=== PATIENT | female | born 1985 | race Caucasian/White ===

== ENCOUNTER 2017-07-04 00:08 | Emergency (ER) | payer OTHER, SELFPAY ==
[2017-07-04 00:08] VITALS: BP 132/77; PULSE 81; RESP 16; TEMP 36.7; BMI 23.8
--- NOTE | 2017-07-04 00:24 | ED.VISSUMM ---
- ER Visit Summary Date of Service: 07/04/17 Chief Complaint: Left wrist injury History of Present Illness: The patient is a 32 F resents to the emergency department with injury to her left wrist. Patient was playing volleyball. She states that she went to bump a ball. She had immediate pain and swelling in her left wrist just proximal to the carpal bones. She states that since then, the pain is gotten a little bit worse. It is worse when she moves the arm. She denies any prior injury. The patient is otherwise healthy. She denies any numbness or tingling in the hand. Physical Examination: Patient has 2+ radial ulnar pulses. Sensation is preserved to light touch. Anterior interosseous, posterior interosseous, and ulnar nerve are preserved. She is tender on the anterior lateral forearm over the radial deviate her musculature. There is some swelling. There is no evidence of gamekeeper's thumb. She does have pain with extension of the thumb and radial deviation of the wrist. There is no gross laxity. Test Results: [] Emergency Department Course and Treatment: Clinically, I do feel the patient likely has tendinous rupture in the forearm overlying the extensor pollicis versus the extensor carpi ligament. X-rays were obtained. These do demonstrate some soft tissue swelling, but no acute fracture. The patient will be placed in a Velcro thumb spica splint. I did debt management counselor her that she is going to need orthopedic follow-up she may need outpatient physical therapy or an MRI. She will be started on anti-inflammatories. She is comfortable with this plan of care. She will use ice and elevation. She will be discharged home. Treatment Plan: [] Disposition: Discharge Impression: 1. Left wrist sprain This note was generated with [employer] dictation software. It may contain incorrect words, spelling, and punctuation that were not noted in review of the chart prior to signing ED Disposition - Plan for ED Patient: Chief Complaint: Upper Extremity Injury Instructions: ED Sprain Wrist Prescriptions: Naproxen [Naprosyn] 500 mg PO BID #20 tab Referrals: Rob Pena MD [STAFF PHYSICIAN] -
--- NOTE | 2017-07-04 00:25 | RAD_ITS ---
STUDY: X-RAY - LEFT WRIST REASON FOR EXAM: Female, 32 years old. Volleyball injury TECHNIQUE: 3 view(s) of the wrist were obtained. COMPARISON: None. FINDINGS: Normal visualized distal radius and ulna. Normal radiocarpal articulation. Normal distal radioulnar articulation. Normal carpal bones. Normal carpal articulations. Normal carpometacarpal articulation of the thumb. Normal second through fifth carpometacarpal articulations. Normal visualized metacarpal bones. The soft tissue structures are unremarkable. RAD/Wrist min 3 Views IMPRESSION: No acute osseous injury is evident. Electronically Signed: Lucio De León MD at 1:05 EDT Tel , Service support ,
--- NOTE | 2017-07-04 00:27 | ED.DCSUM_ITS ---
- ER Visit Summary Date of Service: 07/04/17 Chief Complaint: Left wrist injury History of Present Illness: The patient is a 32 F resents to the emergency department with injury to her left wrist. Patient was playing volleyball. She states that she went to bump a ball. She had immediate pain and swelling in her left wrist just proximal to the carpal bones. She states that since then, the pain is gotten a little bit worse. It is worse when she moves the arm. She denies any prior injury. The patient is otherwise healthy. She denies any numbness or tingling in the hand. Physical Examination: Patient has 2+ radial ulnar pulses. Sensation is preserved to light touch. Anterior interosseous, posterior interosseous, and ulnar nerve are preserved. She is tender on the anterior lateral forearm over the radial deviate her musculature. There is some swelling. There is no evidence of gamekeeper's thumb. She does have pain with extension of the thumb and radial deviation of the wrist. There is no gross laxity. Test Results: [] Emergency Department Course and Treatment: Clinically, I do feel the patient likely has tendinous rupture in the forearm overlying the extensor pollicis versus the extensor carpi ligament. X-rays were obtained. These do demonstrate some soft tissue swelling, but no acute fracture. The patient will be placed in a Velcro thumb spica splint. I did substance abuse counselor her that she is going to need orthopedic follow-up she may need outpatient physical therapy or an MRI. She will be started on anti-inflammatories. She is comfortable with this plan of care. She will use ice and elevation. She will be discharged home. Treatment Plan: [] Disposition: Discharge Impression: 1. Left wrist sprain This note was generated with [employer] dictation software. It may contain incorrect words, spelling, and punctuation that were not noted in review of the chart prior to signing ED Disposition - Plan for ED Patient: Chief Complaint: Upper Extremity Injury Instructions: ED Sprain Wrist Prescriptions: Naproxen [Naprosyn] 500 mg PO BID #20 tab Referrals: Rob Pena MD [STAFF PHYSICIAN] -
== END 2017-07-04 00:53 | disposition home or self-care (01) ==
PROVIDERS: Emergency Provider Emergency Medicine; Family Provider Family Medicine; PCP Family Medicine
DX: S63.502A Unspecified sprain of left wrist, initial encounter (principal); W21.06XA Struck by volleyball, initial encounter; Y93.68 Activity, volleyball (beach) (court); Y92.9 Unspecified place or not applicable
CPT/HCPCS: 73110; 99283

== ENCOUNTER → 2017-09-17 13:54 | Outpatient (CLI) | payer OTHER, SELFPAY ==
[2017-09-22 11:47] LABS: HPV Reflexed? NOT INDICATED
== END ==
PROVIDERS: Visit Provider Obstetrics & Gynecology
DX: Z12.4 Encounter for screening for malignant neoplasm of cervix (principal)
CPT/HCPCS: 88175; G0145

== ENCOUNTER 2018-10-24 22:02 | Emergency (ER) | payer OTHER, SELFPAY ==
[2018-10-24 22:04] VITALS: BP 131/79; PULSE 101; RESP 18; TEMP 36.6; BMI 24.0
[2018-10-24 22:33] LABS: Mucous, Urine 0 SEEN /hpf (<or=2+); Red Blood Cells-Urine 0 SEEN /hpf (0-5)
--- NOTE | 2018-10-24 22:34 | ED.VIS.GEN ---
History of Present Illness Chief Complaint: Female C/O Narrative: Patient is a 33-year-old female who presents with pelvic pain. This began earlier today. She does not have pain at rest but with movement or palpation she complains of dull pain. This is now radiating to the rest of her abdomen. She denies any fevers or vomiting. No diarrhea. 1 week ago she had dysuria that lasted about 1 day. Currently she complains of urinary urgency and frequency but no dysuria. She also complains of vaginal discharge. Her last menstrual period was about 3 weeks ago. She denies any current vaginal bleeding. She is G4, P3. Past Medical History - Allergies and Home Meds Allergies/Adverse Reactions: Allergies hydrocodone bitartrate [From Vicodin] Adverse Reaction (Verified 10/27/15 00:09) Nausea/Vom/Diarrhea Primary Care Physician: Piotr Pierre MD [Primary Care Provider] - Past Medical History: None Smoking Status: Never smoker Review of Systems All systems negative except as indicated General: Denies: Fever Gastrointestinal: Reports: Abdominal pain. Denies: Vomiting, Diarrhea Genitourinary: Reports: Dysuria, - - Urinary urgency, vaginal discharge Physical Exam Vital Signs/Narrative: Vital Signs Temp Pulse Resp BP 10/24/18 22:04 97.8 F 101 H 18 131/79 H General: Well nourished, Well developed ENT: Moist mucous membranes Neck: Supple Cardiovascular: Regular rate, Regular rhythm Respiratory: No distress, CTA bilaterally Abdomen: Soft, - - Suprapubic abdominal tenderness, no guarding, no rebound, nondistended Skin: Normal color Neurological: Alert Diagnostic/Tx/Re-eval - Medical Decision Making Gonorrhea and Chlamydia negative. negative. Urinalysis shows 100 leukocyte esterase but is also contaminated. We will send culture. Given that STI and are ruled out differential would include ovarian cyst. Given that she is comfortable with no nausea or vomiting does not appear in distress I am not concerned about ovarian torsion. I do not see an indication for emergent ultrasound although I did advise that she follow-up as an outpatient for further work-up should symptoms continue. She understands to return for new or worsening symptoms and was instructed on specific signs and symptoms to monitor for. ED Disposition - Plan for ED Patient: Diagnosis: Pelvic pain Instructions: PELVIC PAIN, Unknown Cause Referrals: Piotr Pierre MD [Primary Care Provider] -
[2018-10-24 22:43] LABS: Color, Urine Yellow (Yellow); Glucose, Dipstick Normal (Normal); Ketone-Dipstick Negative (Negative); Leukocyte Esterase-Dipstick 100 /ul (Negative); Nitrite-Dipstick Negative (Negative); Occult Blood-Urine 150 /ul (Negative); Protein-Dipstick 15 mg/dl (Negative); Specific Gravity, Urine 1.015 (1.002-1.030); Urine Bilirubin Dipstick Negative (Negative); Urine Clarity Sl. Cloudy (Clear); Urine Urobilinogen Normal (Normal)
[2018-10-24 22:51] LABS: Squamous Epithelial Cells - UA 5-10 SEEN /hpf (5-10)
[2018-10-24 22:52] LABS: White Blood Cells 0-5 SEEN /hpf (0-5)
[2018-10-24 22:53] LABS: Amorphous Sediment 1+; Bacteria 1+ /hpf (None Seen); Internal QC Validated? YES +Cl - CLEAR BKGD; Pregnancy, Urine Negative Negative
[2018-10-25 00:25] VITALS: BP 117/68; PULSE 100; RESP 18; O2SAT 100
[2018-10-25 00:52] LABS: Chlamydia Trachomatis by PCR Negative (Negative); Neisserai gonorrhoeae by PCR Negative (Negative); Probe Check PASS; Sample Adequacy Control PASS; Specimen Processing Control PASS
--- NOTE | 2018-10-25 00:56 | ED.RN ---
SHAMIR IN LAB CALLED IN [facility]D LAB RESULTS ARE NEGATIVE.
--- NOTE | 2018-10-25 00:57 | ED.RN ---
DR. HALE MADE AWARE ABOUT LAB RESULTS.
== END 2018-10-25 01:14 | disposition home or self-care (01) ==
LOC: ED 22:30
PROVIDERS: Emergency Medicine; Emergency Provider Emergency Medicine; Family Provider Family Medicine; PCP Family Medicine
DX: R10.2 Pelvic and perineal pain (principal); R10.9 Unspecified abdominal pain; R39.15 Urgency of urination; R35.0 Frequency of micturition; Z88.5 Allergy status to narcotic agent
CPT/HCPCS: 81001; 81025; 87086; 87088; 87491; 87591; 99282

== ENCOUNTER → 2019-09-21 | Outpatient (CLI) | payer OTHER, SELFPAY | END | disposition home or self-care (01) | PROVIDERS: PCP Family Medicine; Referring Provider Family Medicine; Visit Provider Family Medicine | DX: Z11.59 Encounter for screening for other viral diseases (principal); Z71.89 Other specified counseling | CPT/HCPCS: 87635; U0003 ==

== ENCOUNTER → 2019-11-01 | Outpatient (CLI) | payer OTHER, SELFPAY ==
[2019-11-03 14:20] LABS: HPV Reflexed? NOT INDICATED
== END | disposition home or self-care (01) ==
LOC: LABSPEC 11:12
PROVIDERS: PCP Family Medicine; Visit Provider Obstetrics & Gynecology
DX: Z12.4 Encounter for screening for malignant neoplasm of cervix (principal)
CPT/HCPCS: 88175; G0145